=== PATIENT | male | born 1930 | race Two or more races ===

== ENCOUNTER 2017-04-30 10:08 | Observation (INO) | payer OTHER ==
[~2017-04-30] VITALS: Ht 177.8 cm; Wt 100.0 kg
[2017-04-30] MEDS ORDERED: ASPI-110 PO (11:01)
[2017-04-30] MEDS ORDERED: MULT-20 (11:08)
[2017-04-30] MEDS ORDERED: GLIP10TA6 PO (11:08)
[2017-04-30] MEDS ORDERED: FERR325T8 PO (11:08)
[2017-04-30] MEDS ORDERED: TRIAPOW (11:08)
[2017-04-30] MEDS ORDERED: DOXA1TAB43 PO (11:08)
[2017-04-30] MEDS ORDERED: LISI40TA PO (11:08)
[2017-04-30] MEDS ORDERED: METF1000 PO (11:08)
[2017-04-30] MEDS ORDERED: NEOSTIGMINE 3 MG/3 ML SYR IV ONE (12:00)
[2017-04-30] MEDS ORDERED: CHLORHEXIDINE GLUCONATE 4% SOLN 120 ML BTL TOPICAL SCH (12:00)
[2017-04-30] MEDS ORDERED: CHLORHEXIDINE GLUCONATE 2 % 1 PACK (2 CLOTHS) TOPICAL PRN (12:00)
[2017-04-30] MEDS ORDERED: INSULIN HUMAN REGULAR 1,000 UNITS/10 ML VIAL SQ PRN (12:00)
[2017-04-30] MEDS ORDERED: LACTATED RINGER'S 1000 ML IV PRN (12:00)
[2017-04-30] MEDS ORDERED: SODIUM CHLORID 0.9% 500 ML IV PRN (12:00)
[2017-04-30] MEDS ORDERED: POVIDONE IODINE 5% (ANTISEPSIS KIT) 4 APPLICATIONS EACH NARE PRN (12:00)
[2017-04-30] MEDS ORDERED: ePHEDrine/NS 25 MG/5 ML SYR IV ONE (12:00)
[2017-04-30] MEDS ORDERED: METOPROLOL TARTRATE 25 MG TAB PO PRN (12:00)
[2017-04-30] MEDS ORDERED: PROPOFOL 200 MG/20 ML AMP IV ONE (12:00)
[2017-04-30] MEDS ORDERED: ONDANSETRON HCL 4 MG/2 ML VIAL IV PUSH ONE (12:00)
[2017-04-30] MEDS ORDERED: PHENYLEPH/NS 1000 MCG/10 ML SYR IV ONE (12:00)
[2017-04-30] MEDS ORDERED: BUPIVACAINE/EPINEPHRINE 0.25% 50 ML VIAL ONE (12:35)
[2017-04-30] MEDS: ceFAZolin 1,000 MG/NS 100 ML IV SCH ×8 (14:00→14:09)
[2017-04-30] MEDS ORDERED: ALUMINUM/MAGNESIUM/SIMETH 30 ML CUP PO PRN (15:15)
[2017-04-30] MEDS ORDERED: SODIUM CHLORIDE 0.9% FLUSH 5 ML FLUSH IVF PRN (15:15)
[2017-04-30] MEDS ORDERED: Post-op Orders (for Pharmacy) MISC XX ONE (15:15)
[2017-04-30] MEDS ORDERED: BISACODYL 10 MG SUPP RECTAL PRN (15:15)
[2017-04-30] MEDS ORDERED: MORPHINE SULFATE 4 MG/ML INJ IV PUSH PRN (15:15)
[2017-04-30] MEDS ORDERED: SOD PHOSPHATE/SOD BIPHOSPHATE (ADULT) ENEMA 133ML PR PRN (15:15)
[2017-04-30] MEDS ORDERED: ONDANSETRON HCL 4 MG/2 ML VIAL IV PRN (15:15)
[2017-04-30] MEDS ORDERED: ACETAMINOPHEN/HYDROcodone 325 MG/5 MG TAB PO PRN (15:15)
[2017-04-30] MEDS ORDERED: WALKER WHEELS/F1 MIS (15:22)
[2017-04-30] MEDS ORDERED: DO NOT ADM ANY ANTICOAGULANT DRUGS PRN (15:23)
[2017-04-30] MEDS ORDERED: fentaNYL CITRATE 250 MCG/5 ML AMP ONE (15:32)
--- NOTE | 2017-04-30 15:33 | HHI.PR ---
Immediate Post Op Note Procedure Date: Apr 30, 2017 Pre Op Diagnosis: L3-S1 moderately severe spinal stenosis Post Op Diagnosis: Same Surgeon: Jesse Bird MD Chef Under(s): Marina Izaguirre PA-C Procedure: L3-S1 bilateral decompressive laminectomy Complications: None Specimen(s) removed: None Estimated blood loss: 250cc Anesthesia: General Drains: None Patient to: PACU Patient Condition: Good Date/Time of Procedure: SEE SURGICAL CARE RECORD Jesse Bird MD Apr 30, 2017 15:33
--- NOTE | 2017-04-30 15:33 | RADRPT ---
EXAM DATE/TIME: 04/30/2017 14:45 [place] COMPARISON: No previous studies available for comparison. INDICATIONS : Lower back pain. MEDICAL HISTORY : None. SURGICAL HISTORY : None. ENCOUNTER: Initial ACUITY: 1 day PAIN SCORE: Non-responsive. LOCATION: Lower back. CONCLUSION: Lateral fluoroscopic image demonstrates temporary probe posterior to L3 and S1. Wayne Enriquez MD on April 30, 2017 at 15:31 Board Certified Radiologist. This report was verified electronically.
[2017-04-30] MEDS ORDERED: ceFAZolin INJ 1,000 MG VIAL ONE (15:39)
[2017-04-30] MEDS: LACTATED RINGER'S 1000 ML INJ 1,000 ML IV SCH ×2 (16:00→16:22)
[2017-04-30] MEDS ORDERED: glipiZIDE 10 MG TAB PO SCH (16:00)
--- NOTE | 2017-04-30 16:18 | MP ---
cc: ROBERTO CARLOS ACKERMAN MD, ALBERT W. M.D. DATE OF SURGERY: 04/30/2017 DIAGNOSIS 1. L3 to S1 moderately severe spinal stenosis. 2. Lumbar spine degenerative disk disease, osteoarthritis. 3. Bilateral lumbar radiculitis with bilateral lower extremity weakness. PROCEDURE L3, L4, L5, S1 bilateral decompressive laminectomy, bilateral foraminotomy and partial facetectomy. SURGEON Brigitte Bird MD FRONT OFFICE MANAGER ALICE Sales SPECIMEN None. ESTIMATED BLOOD LOSS 250 ccs. COMPLICATIONS None. ANESTHESIA General. DRAIN None. CONDITION Stable. PLAN OF ACTIVITY Per orders. PROCEDURE My costumer assistant ALICE Sales was present for the entire surgical case. She was medically necessary for the entire case because of the complexity of the case and to facilitate the performance of the procedure. The DOCTOR OF NAPRAPATHIC MEDICINE at the back table was not of skill set for this case to manipulate the instruments, e.g., multiple different types of soft tissue retractors, nerve retractors. The patient was brought in the operating room, had satisfactory general endotracheal anesthesia by Dr. Beckford, Department of Anesthesia. The patient was carefully transferred onto the Retinol spinal frame. All pressure points were well-padded. Lumbosacral spine was prepped and draped in usual sterile manner. Localizing x-ray was used to identify from L3 to S1. 30 ccs of 0.25% Marcaine with epinephrine was used to anesthetize the operative site to provide postoperative hemostasis with analgesia. Midline incision made from L3 to S1. All bleeders were coagulated. Dissection continued through skin and subcutaneous tissue. Paraspinal musculature was gently removed from the posterior elements from L3 to S1 bilaterally. A bilateral decompressive laminectomy was performed at S1, L5, L4, L3. Patient was found to have moderately severe to severe spinal stenosis, moderate severe spinal stenosis at S1, moderately severe spinal stenosis at L5, severe spinal stenosis at L4 and L3. Bilateral foraminotomy, partial facetectomies were also performed. Patient was found to have very satisfactory decompression neurological elements. There was no evidence of any CSF leak. There is no bleeding noted. The wound was irrigated with copious amounts of sterile saline antibiotic solution. The wound itself was dry. It was closed in routine manner with the fascia closed with #2 Tycron suture, subcutaneous closed in multiple layers with 0-Vicryl and 2-0 Vicryl, skin was approximated with interrupted 2-0 Nylon. Sterile dressings were applied. The patient tolerated the procedure well and arrived in the recovery room in stable and satisfactory condition. MD MIMI Morrissey/ANITA /3:15 PM /3:40 PM
[2017-04-30] MEDS ORDERED: *morphine SULFATE 8 MG/ML PERIprocedure ONLY ONE (16:52)
[2017-04-30] MEDS: metFORMIN HCL 500 MG TAB PO SCH (18:00)
[2017-04-30] MEDS ORDERED: DEXTROSE 50% IN WATER 50 ML VIAL(D50) IV PRN (19:15)
[2017-04-30] MEDS ORDERED: GLUCAGON 1 MG/ML VIAL OTHER PRN (19:15)
[2017-04-30] MEDS ORDERED: cloNIDine HCL 0.1 MG TAB PO PRN (19:15)
--- NOTE | 2017-04-30 20:51 | PD.CONS ---
[facility] By Dr. Jesse Bird Reason for Consult Medical management Primary Care Physician Madai Coreas MD Diagnoses: History of Present Illness This is a 86-year-old male with a history of chronic lower back pain affecting his ambulation and other activities of daily living. He has severe lumbar stenosis and underwent laminectomy by Dr. Bird who requested consultation to evaluate and manage multiple medical conditions. Anesthesia records reviewed. He was hemodynamically stable. Received 1400 mL crystalloid and EBL of 250 mL. At this time he has no pain. Patient has history of hypertension controlled on lisinopril and Cardura, diabetes mellitus also controlled on glipizide and metformin, bilateral lower extremity edema prescribed with stockings by his PCP denies history of heart failure and PAD on aspirin denies claudication. Outside records reviewed. He was cleared by his PCP Russell Higgins He had preop evaluation with blood test and urinalysis results not available. Chest x-ray without acute cardio pulmonary disease. EKG with sinus rhythm with probable progression. All other systems reviewed negative Review of Systems Except as stated in HPI: all other systems reviewed are Neg Past Family Social History Allergies: Coded Allergies: No Known Allergies (Unverified , 04/30/17) Past Medical History As previously mentioned Past Surgical History Prior cervical surgery Reported Medications Triamcinolone Acetonide (Triamcinolone Acetonide (Topic) 1 Pow Pow 0.1 % PRN One Daily Men's 50+ Tablet (Mv-Mins/Folic/Lycopene/Ginkgo) 1 Each Tablet Metformin (Metformin HCl) 1,000 Mg Tab 1,000 Mg PO BIDPC With meals Lisinopril 40 Mg Tab 40 Mg PO DAILY Glipizide 10 Mg Tab 10 Mg PO BIDAC Take 30 minutes before a meal Ferrous Sulfate 325 Mg (65 Mg Iron) Tablet 325 Mg PO DAILY Doxazosin (Doxazosin Mesylate) 8 Mg Tab 8 Mg PO DAILY Aspirin 81 (Aspirin) 81 Mg Tabdr 81 Mg PO DAILY Family History No CAD Social History Quit alcohol in 1987 when he was diagnosed with diabetes. Ex-smoker Physical Exam Vital Signs Vital Signs Date Time Temp Pulse Resp B/P (MAP) Pulse Ox O2 Delivery O2 Flow Rate FiO2 04/30/17 19:00 100 16 140/65 (90) 100 Nasal Cannula 2 04/30/17 18:00 94 16 161/75 (103) 100 Nasal Cannula 2 04/30/17 17:00 80 16 169/84 (112) 100 Nasal Cannula 2 04/30/17 16:30 72 16 167/77 (107) 100 Nasal Cannula 2 04/30/17 16:15 74 16 145/67 (93) 100 Nasal Cannula 2 04/30/17 16:00 72 16 148/67 (94) 100 Nasal Cannula 2 04/30/17 15:45 72 16 128/58 (81) 99 Nasal Cannula 2 04/30/17 15:30 90 16 111/57 (75) 98 Nasal Cannula 2 04/30/17 15:23 97.4 100 16 114/55 (74) 99 Nasal Cannula 2 04/30/17 11:27 98.9 93 20 162/86 (111) 98 Physical Exam GENERAL: This is a well-nourished, well-developed patient, in no apparent distress on nasal cannula. SKIN: No rashes, ecchymoses or lesions. Cool and dry. HEAD: Atraumatic. Normocephalic. No temporal or scalp tenderness. EYES: Pupils equal round and reactive. Extraocular motions intact. No scleral icterus. No injection or drainage. ENT: Nose without bleeding, purulent drainage or septal hematoma. Throat without erythema, tonsillar hypertrophy or exudate. Uvula midline. Airway patent. NECK: Trachea midline. No JVD or lymphadenopathy. Supple, nontender, no meningeal signs. CARDIOVASCULAR: Regular rate and rhythm without murmurs, gallops, or rubs. RESPIRATORY: Clear to auscultation. Breath sounds equal bilaterally. No wheezes , rales, or rhonchi. GASTROINTESTINAL: Abdomen soft, non-tender, nondistended. No guarding. MUSCULOSKELETAL: Extremities without clubbing, cyanosis with bilateral lower extremity pitting edema. No joint tenderness, effusion, or edema noted. No calf tenderness. Negative Homans sign bilaterally. NEUROLOGICAL: Awake and alert. Cranial nerves II through XII intact. Motor and sensory grossly within normal limits. Five out of 5 muscle strength in all muscle groups. Normal speech. Assessment and Plan Assessment and Plan This is a 86-year-old male with a history of chronic lower back pain affecting his ambulation and other activities of daily living. He has severe lumbar stenosis and underwent laminectomy by Dr. Bird who requested consultation to evaluate and manage multiple medical conditions. Anesthesia records reviewed. He was hemodynamically stable. Received 1400 mL crystalloid and EBL of 250 mL. At this time he has no pain. Continue postoperative care with PT, wound care, incentive spirometry and pain management with Lortab and IV morphine sulfate. Pharmacological DVT prophylaxis per orthopedic surgery Hypertension controlled on lisinopril and Cardura. We'll continue these meds and monitor, Dabetes mellitus also controlled on glipizide and metformin. We'll continue these meds and check fingersticks with sliding scale coverage Bilateral lower extremity edema denies history of heart failure. Teds/SCD PAD on aspirin denies claudication. DVT prophylaxis with SCD and early ambulation Discussed Condition With Patient Horacio Alexander MD Apr 30, 2017 20:51
[2017-04-30] MEDS ORDERED: ZOLPIDEM TARTRATE 5 MG TAB PO PRN (21:00)
[2017-04-30] MEDS: SODIUM CHLORIDE 0.9% FLUSH 5 ML FLUSH IVF SCH (21:00)
[2017-04-30] MEDS: INSULIN ASPART SUPPLEMENTAL SCALE SQ SCH (21:23)
[2017-04-30 22:00] VITALS: BP 126/58; PULSE 86; RESP 17; TEMP 96.8; O2SAT 100
[2017-04-30] MEDS: ACETAMINOPHEN/HYDROcodone 325 MG/5 MG TAB PO PRN (22:30)
[2017-05-01] VITALS: BP 123/60; PULSE 77; RESP 16; TEMP 96.7; O2SAT 100
[2017-05-01 04:00] VITALS: BP 123/61; PULSE 83; RESP 17; TEMP 96.4; O2SAT 98
[2017-05-01] MEDS: INSULIN ASPART SUPPLEMENTAL SCALE SQ SCH ×2 (06:44→11:00)
--- NOTE | 2017-05-01 07:13 | PD.ORT.PN ---
Subjective Subjective Remarks POD#1 L3-S1 laminectomy No c/o pain,numbness,or weakness No sob,chest pain Objective Vitals Vital Signs Date Time Temp Pulse Resp B/P (MAP) Pulse Ox O2 Delivery O2 Flow Rate FiO2 05/01/17 04:00 96.4 83 17 123/61 (81) 98 05/01/17 00:00 96.7 77 16 123/60 (81) 100 04/30/17 22:00 96.8 86 17 126/58 (80) 100 04/30/17 20:00 97.8 97 13 126/58 (80) 96 Nasal Cannula 1 04/30/17 19:00 100 16 140/65 (90) 100 Nasal Cannula 2 04/30/17 18:00 94 16 161/75 (103) 100 Nasal Cannula 2 04/30/17 17:00 80 16 169/84 (112) 100 Nasal Cannula 2 04/30/17 16:30 72 16 167/77 (107) 100 Nasal Cannula 2 04/30/17 16:15 74 16 145/67 (93) 100 Nasal Cannula 2 04/30/17 16:00 72 16 148/67 (94) 100 Nasal Cannula 2 04/30/17 15:45 72 16 128/58 (81) 99 Nasal Cannula 2 04/30/17 15:30 90 16 111/57 (75) 98 Nasal Cannula 2 04/30/17 15:23 97.4 100 16 114/55 (74) 99 Nasal Cannula 2 04/30/17 11:27 98.9 93 20 162/86 (111) 98 I/O 04/30/17 04/30/17 04/30/17 05/01/17 05/01/17 05/01/17 07:00 15:00 23:00 07:00 15:00 23:00 Intake Total 1650 ml 480 ml Output Total 250 ml 650 ml Balance -250 ml 1650 ml -170 ml Intake Oral 150 ml 480 ml IV Total 100 ml Other 1400 ml Output Urine Total 650 ml Estimated Blood Loss 250 ml # Bowel Movements 0 Objective Remarks Motor +5/5 LE N/V intact Assessment & Plan Assessment and Plan Ortho stable Discharge home today JIM(usual discharge instructions) Jesse Bird MD May 01, 2017 07:12
[2017-05-01 07:40] VITALS: BP 178/84; PULSE 72; RESP 19; TEMP 95.8; O2SAT 100
[2017-05-01 07:59] LABS: HEMATOCRIT 30.4 % (39.0-51.0); REVIEW FLAG FINAL
[2017-05-01] MEDS ORDERED: DOXAZOSIN MESYLATE 4 MG TAB PO SCH (09:00)
[2017-05-01] MEDS ORDERED: MULTIVITAMINS/MINERALS THERAPEUTIC TAB PO SCH (09:00)
[2017-05-01] MEDS ORDERED: ASPIRIN EC 81 MG TABEC PO SCH (09:00)
[2017-05-01] MEDS ORDERED: FERROUS SULFATE 325 MG (65 MG ELEMENTAL IRON) TAB PO SCH (09:00)
[2017-05-01] MEDS: SODIUM CHLORIDE 0.9% FLUSH 5 ML FLUSH IVF SCH (09:00)
[2017-05-01] MEDS ORDERED: LISINOPRIL 20 MG TAB PO SCH (09:00)
[2017-05-01] MEDS: metFORMIN HCL 500 MG TAB PO SCH (09:33)
[2017-05-01] MEDS: ACETAMINOPHEN/HYDROcodone 325 MG/5 MG TAB PO PRN (09:35)
[2017-05-01] MEDS ORDERED: NORC5TAB PO ×3 (10:48→10:53)
[2017-05-01 10:56] VITALS: O2SAT 95
[2017-05-01 11:23] VITALS: BP 131/60; PULSE 78; RESP 19; TEMP 96.9; O2SAT 96
[2017-05-01] MEDS ORDERED: DOCUSATE SODIUM 100 MG CAP PO SCH (21:00)
== END 2017-05-01 12:51 | disposition home or self-care (01) ==
LOC: HSDC 10:08 → HSDI 15:20 → N06A 20:52
PROVIDERS: ADMIT Orthopaedic Surgery Orthopaedic Surgery of the Spine; ATTEND Orthopaedic Surgery Orthopaedic Surgery of the Spine
DX: M48.06 Spinal stenosis, lumbar region (principal); I10 Essential (primary) hypertension; E11.9 Type 2 diabetes mellitus without complications; Z79.84 Long term (current) use of oral hypoglycemic drugs; Z87.891 Personal history of nicotine dependence
CPT/HCPCS: 00630; 63047; 63048; 72020; 76000; 82948; 85014; 85018; 94150; 97162; G0378; G8987; G8988; J0690; J1815; J2270; J2370; J2405; J2710; J3010; J7120